=== PATIENT | female | born 1980 | race Caucasian/White ===

== ENCOUNTER 2017-01-03 15:58 | Emergency (ER) | payer BC ==
[~2017-01-03 15:58] MED LIST: BELSOMRA20 MG PO; BELSOMRA5 MG; BENADRYL50 MG/ML IM; BOTOX200 U; BRINTELLIX20 MG PO; CARDIZEM CD120 M1 PO; CLONAZEPAM0.25 MG PO; CYMBALTA20 MG PO; DEPAKOTE500 MG PO; ENJUVIA0.3 MG PO; EXCEDRIN TENSION HA PO; GEODON80 MG PO; IBUPROFEN200 M1 PO; LINZESS145 MCG PO; METOPROLOL SUCC50 M2 PO; MIDRIN 325 MG-11 CAP PO; MIGRANAL NASA4 MG/ML NS; NORFLEX30 MG/ML IM; OXYCODONE HCL10 M1; OXYCODONE HCL10 M1 PO; OXYCODONE5 M1 PO; PERCOCET 325 MG1 TAB PO; PHENERGAN 25 TA25 MG PO; PHENERGAN25 MG/1 ML IJ; PREDNISONE10 M1 PO; PREMARIN 0.60.625 M1 PO; PREMARIN 0.9MG0.9 MG PO; PREMARIN0.9 M1 PO; PROTONIX20 M1 PO; PROTONIX40 MG; TOPAKAX PO; TOPROL XL 25MG25 MG PO; TRAZODONE100 MG PO; ULTRAM50 M1 PO; WELLBUTRIN 75MG75 MG PO; ZOFRAN4 M2 PO; ZOFRAN8 MG; ZOLOFT100 MG PO
[2017-01-03] MEDS ORDERED: ATIVAN1 M1 PO (16:09)
[2017-01-03 16:37] VITALS: BP 132/84
== END 2017-01-03 16:40 | disposition home or self-care (01) ==
LOC: ED 15:58
DX: Z76.5 Malingerer [conscious simulation] (principal); G89.29 Other chronic pain; K83.8 Other specified diseases of biliary tract

== ENCOUNTER 2017-02-02 19:28 | Emergency (ER) | payer BC ==
[~2017-02-02] VITALS: Ht 157.5 cm; Wt 86.4 kg
[~2017-02-02 19:28] MED LIST changes: +ATIVAN1 M1 PO
[2017-02-02 21:19] VITALS: BP 137/82
== END 2017-02-02 21:19 | disposition home or self-care (01) ==
LOC: ED 19:28
DX: R10.11 Right upper quadrant pain (principal); K83.4 Spasm of sphincter of Oddi; G43.909 Migraine, unspecified, not intractable, without status migrainosus; F42.9 Obsessive-compulsive disorder, unspecified
CPT/HCPCS: J0595; J2550

== ENCOUNTER 2017-05-27 15:31 | Emergency (ER) | payer BC ==
[~2017-05-27] VITALS: Ht 157.5 cm; Wt 80.7 kg
[2017-05-27] MEDS ORDERED: OXYCODONE HCL10 M1 PO (16:45)
[2017-05-27] MEDS ORDERED: PROTONIX TR40 M1 PO (16:45)
[2017-05-27] MEDS ORDERED: GEODON80 M1 PO (16:45)
[2017-05-27] MEDS ORDERED: ZOFRAN 8MG8 MG PO (16:45)
[2017-05-27 19:10] VITALS: BP 142/92
== END 2017-05-27 19:34 | disposition home or self-care (01) ==
LOC: ED 15:31
DX: R10.84 Generalized abdominal pain (principal); R11.2 Nausea with vomiting, unspecified; K83.8 Other specified diseases of biliary tract; F32.9 Major depressive disorder, single episode, unspecified; Z90.49 Acquired absence of other specified parts of digestive tract
CPT/HCPCS: J0595; J1170; J2550; J7030

== ENCOUNTER 2017-06-24 18:21 | Emergency (ER) | payer BC ==
[~2017-06-24] VITALS: Ht 157.5 cm; Wt 79.5 kg
[~2017-06-24 18:21] MED LIST changes: +GEODON80 M1 PO; +PROTONIX TR40 M1 PO; +ZOFRAN 8MG8 MG PO
[2017-06-24] MEDS ORDERED: BENADRYL 50M50 MG/ML IJ (18:30)
[2017-06-24] MEDS ORDERED: AMERINET CHO25 MG/ML IJ (18:30)
[2017-06-24 20:37] VITALS: BP 129/90
== END 2017-06-24 20:37 | disposition home or self-care (01) ==
LOC: ED 18:21
DX: R10.11 Right upper quadrant pain (principal); G89.29 Other chronic pain; R11.2 Nausea with vomiting, unspecified; K83.8 Other specified diseases of biliary tract
CPT/HCPCS: J1170; J2405; J7030

== ENCOUNTER 2017-08-20 14:24 | Emergency (ER) | payer BC ==
[~2017-08-20] VITALS: Ht 157.5 cm; Wt 77.3 kg
[~2017-08-20 14:24] MED LIST changes: +AMERINET CHO25 MG/ML IJ; +BENADRYL 50M50 MG/ML IJ
[2017-08-20] MEDS ORDERED: AMERINET CHO25 MG/ML IJ (15:00)
[2017-08-20 15:27] VITALS: BP 122/81
== END 2017-08-20 15:22 | disposition home or self-care (01) ==
LOC: ED 14:24
DX: R11.2 Nausea with vomiting, unspecified (principal); K83.8 Other specified diseases of biliary tract; G89.29 Other chronic pain; F41.9 Anxiety disorder, unspecified; F32.9 Major depressive disorder, single episode, unspecified; K21.9 Gastro-esophageal reflux disease without esophagitis
CPT/HCPCS: J2550

== ENCOUNTER → 2018-01-06 | Outpatient (CLI) | payer BC ==
[~2018-01-06] VITALS: Ht 157.5 cm; Wt 77.3 kg
[2018-01-06 17:49] VITALS: BP 146/91
--- NOTE | 2018-01-06 17:53 | NUR ---
INT INITIATED TO RIGHT AC AFTER 4 UNSUCCESSFUL ATTEMPTS, PATIENT STATES "THEY ALWAYS HAVE TROUBLE", FOR APPROX 55 MINS WHILE INT WAS TRIED PATIENT MADE NO MENTION OF NEED TO VOMIT.
[2018-01-06 19:50] VITALS: BP 144/86
--- NOTE | 2018-01-06 19:52 | NUR ---
IVF INFUSED, PATIENT DID TAKE FEW ICE CHIPS WITHOUT ANY EVIDENCE OF VOMITING, INT DC'D, BANDAID TO SITE, NO BLEEDING NOTED, DISMISSED AMBULATORY TO SELF CAARE
== END ==
LOC: AMSURD 16:39
DX: G43.A1 Cyclical vomiting, in migraine, intractable (principal)
CPT/HCPCS: J2550; J7030

== ENCOUNTER 2018-05-29 12:53 | Emergency (ER) | payer BC ==
[2018-05-29 13:46] LABS: BASO # 0.1 (0.02-0.10); EOS # 0.1 (0.04-0.40); EOS % 0.6 % (1.0-5.0); HEMATOCRIT 43.6 % (37.0-47.0); HEMOGLOBIN 14.6 g/dL (12.5-16.0); LYMPH# 2.7 (1.50-4.00); MEAN CELL VOLUME 87 fl (78-100); MEAN CORPUSCULAR HEMOGLOBIN 29 pg (27-31); MEAN CORPUSCULAR HGB CONC 34 g/dL (33-37); MEAN PLATELET VOLUME 11.6 fl (7.4-10.4); MONO # 0.4 (0.20-0.80); NEU # 6.3 (1.40-6.50); PLATELET COUNT 337 K/mm3 (130-400); RED BLOOD COUNT 4.99 M/mm3 (4.10-5.30); RED CELL DISTRIBUTION WIDTH 15.4 % (11.5-14.5); WHITE BLOOD COUNT 9.6 K/mm3 (4.8-10.8)
[2018-05-29 13:56] LABS: ALBUMIN 4.3 g/dL (3.5-5.0); CALCIUM 9.5 mg/dL (8.4-10.2); POTASSIUM 3.6 mmol/L (3.6-5.0); TOTAL BILIRUBIN 0.5 mg/dL (0.2-1.3); TOTAL PROTEIN 7.4 g/dL (6.3-8.2)
[2018-05-29 14:36] LABS: URINE APPEARANCE HAZY; URINE COLOR YELLOW
[2018-05-29 14:37] LABS: URINE BILIRUBIN NEGATIVE (NEGATIVE); URINE BLOOD NEGATIVE (NEGATIVE); URINE GLUCOSE NEGATIVE (NEGATIVE); URINE KETONE NEGATIVE (NEGATIVE); URINE LEUKOCYTE ESTERASE NEGATIVE (NEGATIVE); URINE NITRATE NEGATIVE (NEGATIVE); URINE PROTEIN(semi-quant) NEGATIVE (NEGATIVE); URINE UROBILINOGEN NORMAL (NORMAL)
[2018-05-29 14:51] VITALS: BP 139/95
== END 2018-05-29 14:51 | disposition home or self-care (01) ==
LOC: ED 12:53
PROVIDERS: Physician Assistant
DX: K83.8 Other specified diseases of biliary tract (principal); G89.29 Other chronic pain; R11.2 Nausea with vomiting, unspecified; Z90.49 Acquired absence of other specified parts of digestive tract; Z79.899 Other long term (current) drug therapy
CPT/HCPCS: J2270; J2550; J7030

== ENCOUNTER 2018-07-04 15:17 | Emergency (ER) | payer BC ==
[~2018-07-04] VITALS: Ht 157.5 cm; Wt 68.2 kg
[2018-07-04 17:10] VITALS: BP 145/98
[2018-07-04] MEDS ORDERED: SERTRALINE HYD100 MG PO (17:17)
[2018-07-04] MEDS ORDERED: GEODON80 M1 PO (17:18)
== END 2018-07-04 17:11 | disposition home or self-care (01) ==
LOC: ED 15:17
DX: K83.09 Other cholangitis (principal); R10.9 Unspecified abdominal pain; R00.0 Tachycardia, unspecified; R11.2 Nausea with vomiting, unspecified; K85.90 Acute pancreatitis without necrosis or infection, unspecified
CPT/HCPCS: J1170; J2550

== ENCOUNTER 2018-07-24 17:24 | Emergency (ER) | payer BC ==
[~2018-07-24 17:24] MED LIST changes: +SERTRALINE HYD100 MG PO
[2018-07-24 18:37] VITALS: BP 155/100
== END 2018-07-24 18:35 | disposition home or self-care (01) ==
LOC: ED 17:24
DX: K83.8 Other specified diseases of biliary tract (principal); G89.29 Other chronic pain; F41.9 Anxiety disorder, unspecified; F31.9 Bipolar disorder, unspecified; Z87.19 Personal history of other diseases of the digestive system; Z90.49 Acquired absence of other specified parts of digestive tract
CPT/HCPCS: J1170; J2765

== ENCOUNTER 2018-08-18 17:07 | Emergency (ER) | payer BC ==
[2018-08-18 18:17] LABS: EOS # 0.1 (0.04-0.40); EOS % 0.8 % (1.0-5.0); HEMATOCRIT 40.4 % (37.0-47.0); HEMOGLOBIN 13.6 g/dL (12.5-16.0); LYMPH# 2.2 (1.50-4.00); MEAN CELL VOLUME 91 fl (78-100); MEAN CORPUSCULAR HEMOGLOBIN 31 pg (27-31); MEAN CORPUSCULAR HGB CONC 34 g/dL (33-37); MEAN PLATELET VOLUME 11.5 fl (7.4-10.4); MONO # 0.4 (0.20-0.80); NEU # 4.7 (1.40-6.50); PLATELET COUNT 333 K/mm3 (130-400); RED BLOOD COUNT 4.43 M/mm3 (4.10-5.30); RED CELL DISTRIBUTION WIDTH 12.8 % (11.5-14.5); WHITE BLOOD COUNT 7.4 K/mm3 (4.8-10.8)
[2018-08-18 18:30] LABS: ALBUMIN 4.3 g/dL (3.5-5.0); CALCIUM 9.8 mg/dL (8.4-10.2); POTASSIUM 3.8 mmol/L (3.6-5.0); TOTAL BILIRUBIN 0.3 mg/dL (0.2-1.3); TOTAL PROTEIN 7.1 g/dL (6.3-8.2)
[2018-08-18 18:32] LABS: LIPASE 214 U/L (23-300)
[2018-08-18] MEDS ORDERED: ZOFRAN ODT4 MG PO (19:16)
[2018-08-18 19:25] LABS: PH-URINE 5.5 (5.0 - 8.0); URINE APPEARANCE HAZY; URINE BILIRUBIN NEGATIVE (NEGATIVE); URINE BLOOD NEGATIVE (NEGATIVE); URINE COLOR YELLOW; URINE GLUCOSE NEGATIVE (NEGATIVE); URINE KETONE NEGATIVE (NEGATIVE); URINE LEUKOCYTE ESTERASE NEGATIVE (NEGATIVE); URINE NITRATE NEGATIVE (NEGATIVE); URINE PROTEIN(semi-quant) TRACE mg/dL (NEGATIVE); URINE UROBILINOGEN NORMAL (NORMAL)
[2018-08-18 19:28] VITALS: BP 131/79
== END 2018-08-18 19:28 | disposition home or self-care (01) ==
LOC: ED 17:07
PROVIDERS: Physician Assistant
DX: G89.29 Other chronic pain (principal); K83.8 Other specified diseases of biliary tract; Z79.899 Other long term (current) drug therapy; F32.9 Major depressive disorder, single episode, unspecified; Z87.19 Personal history of other diseases of the digestive system; Z90.49 Acquired absence of other specified parts of digestive tract; Z88.1 Allergy status to other antibiotic agents; Z88.8 Allergy status to other drugs, medicaments and biological substances
CPT/HCPCS: J1170; J2405; J7030

== ENCOUNTER 2018-08-21 13:21 | Emergency (ER) | payer BC ==
[~2018-08-21] VITALS: Ht 157.5 cm; Wt 70.5 kg
[~2018-08-21 13:21] MED LIST changes: +ZOFRAN ODT4 MG PO
[2018-08-21] MEDS ORDERED: PROTONIX TR40 M1 PO (13:33)
[2018-08-21 14:15] LABS: EOS # 0.1 (0.04-0.40); EOS % 1.3 % (1.0-5.0); HEMOGLOBIN 14.2 g/dL (12.5-16.0); MEAN CELL VOLUME 93 fl (78-100); MEAN CORPUSCULAR HEMOGLOBIN 31 pg (27-31); MEAN CORPUSCULAR HGB CONC 33 g/dL (33-37); MEAN PLATELET VOLUME 11.2 fl (7.4-10.4); MONO # 0.3 (0.20-0.80); NEU # 5.9 (1.40-6.50); PLATELET COUNT 328 K/mm3 (130-400); RED BLOOD COUNT 4.65 M/mm3 (4.10-5.30); WHITE BLOOD COUNT 8.4 K/mm3 (4.8-10.8)
[2018-08-21 14:27] LABS: ALBUMIN 4.5 g/dL (3.5-5.0); CALCIUM 9.4 mg/dL (8.4-10.2); TOTAL BILIRUBIN 0.4 mg/dL (0.2-1.3); TOTAL PROTEIN 7.4 g/dL (6.3-8.2)
[2018-08-21 14:30] LABS: URINE APPEARANCE CLEAR; URINE BILIRUBIN NEGATIVE (NEGATIVE); URINE BLOOD NEGATIVE (NEGATIVE); URINE COLOR YELLOW; URINE GLUCOSE NEGATIVE (NEGATIVE); URINE KETONE NEGATIVE (NEGATIVE); URINE LEUKOCYTE ESTERASE NEGATIVE (NEGATIVE); URINE NITRATE NEGATIVE (NEGATIVE); URINE PROTEIN(semi-quant) TRACE mg/dL (NEGATIVE); URINE UROBILINOGEN NORMAL (NORMAL)
[2018-08-21 14:31] LABS: URINE WBC 0-1 /hpf (0-3)
[2018-08-21 15:35] VITALS: BP 132/93
== END 2018-08-21 15:40 | disposition home or self-care (01) ==
LOC: ED 13:21
PROVIDERS: Nurse Practitioner Primary Care
DX: K83.8 Other specified diseases of biliary tract (principal); I10 Essential (primary) hypertension; F31.9 Bipolar disorder, unspecified; Z79.899 Other long term (current) drug therapy; Z88.5 Allergy status to narcotic agent; Z88.8 Allergy status to other drugs, medicaments and biological substances
CPT/HCPCS: J2270; J2550; J7030

== ENCOUNTER 2018-08-24 16:54 | Emergency (ER) | payer BC ==
[2018-08-24 16:59] VITALS: BP 150/95
== END 2018-08-24 19:46 | disposition home or self-care (01) ==
LOC: ED 16:54
DX: K83.8 Other specified diseases of biliary tract (principal); Z87.19 Personal history of other diseases of the digestive system; F31.9 Bipolar disorder, unspecified; Z90.49 Acquired absence of other specified parts of digestive tract; Z79.899 Other long term (current) drug therapy
CPT/HCPCS: J0595; J2405

== ENCOUNTER 2018-08-31 15:27 | Emergency (ER) | payer BC ==
[2018-08-31 17:57] VITALS: BP 145/98
[2018-09-01] MEDS ORDERED: FENTANYL1 EAC3 TD (21:45)
== END 2018-08-31 17:59 | disposition home or self-care (01) ==
LOC: ED 15:27
DX: R10.11 Right upper quadrant pain (principal); R11.10 Vomiting, unspecified; R51 Headache; K83.4 Spasm of sphincter of Oddi; F31.9 Bipolar disorder, unspecified; F42.9 Obsessive-compulsive disorder, unspecified; G43.909 Migraine, unspecified, not intractable, without status migrainosus; Z90.49 Acquired absence of other specified parts of digestive tract; Z79.899 Other long term (current) drug therapy; Z87.19 Personal history of other diseases of the digestive system
CPT/HCPCS: J0595; J2765

== ENCOUNTER 2018-09-01 19:35 | Emergency (ER) | payer BC ==
[2018-08-31 17:57] VITALS: BP 145/98
[~2018-09-01] VITALS: Ht 157.5 cm; Wt 68.2 kg
[2018-09-01 21:07] LABS: HEMATOCRIT 45.3 % (37.0-47.0); HEMOGLOBIN 15.2 g/dL (12.5-16.0); MEAN CELL VOLUME 92 fl (78-100); MEAN CORPUSCULAR HEMOGLOBIN 31 pg (27-31); MEAN CORPUSCULAR HGB CONC 34 g/dL (33-37); MEAN PLATELET VOLUME 11.1 fl (7.4-10.4); PLATELET COUNT 329 K/mm3 (130-400); RED BLOOD COUNT 4.94 M/mm3 (4.10-5.30); RED CELL DISTRIBUTION WIDTH 13.3 % (11.5-14.5); WHITE BLOOD COUNT 15.1 K/mm3 (4.8-10.8)
[2018-09-01 21:21] LABS: CALCIUM 9.3 mg/dL (8.4-10.2); POTASSIUM 3.4 mmol/L (3.6-5.0); TOTAL BILIRUBIN 0.7 mg/dL (0.2-1.3); TOTAL PROTEIN 8.2 g/dL (6.3-8.2)
[2018-09-01 21:23] LABS: URINE APPEARANCE CLOUDY; URINE BILIRUBIN NEGATIVE (NEGATIVE); URINE BLOOD NEGATIVE (NEGATIVE); URINE COLOR YELLOW; URINE GLUCOSE NEGATIVE (NEGATIVE); URINE KETONE NEGATIVE (NEGATIVE); URINE LEUKOCYTE ESTERASE NEGATIVE (NEGATIVE); URINE NITRATE NEGATIVE (NEGATIVE); URINE PROTEIN(semi-quant) NEGATIVE (NEGATIVE); URINE UROBILINOGEN NORMAL (NORMAL)
[2018-09-01 21:23] LABS: BAND 1 % (0-10); LYMPHOCYTE 5 % (20-51); MONOCYTE 4 % (3-10); NEUTROPHILS 90 % (42-75)
[2018-09-01 21:24] LABS: URINE MUCUS PRESENT (NOT PRESENT)
[2018-09-01] MEDS ORDERED: FENTANYL1 EAC3 TD (21:45)
== END 2018-09-01 22:24 | disposition home or self-care (01) ==
LOC: ED 19:35
PROVIDERS: Nurse Practitioner
DX: K83.4 Spasm of sphincter of Oddi (principal); G89.29 Other chronic pain; G43.909 Migraine, unspecified, not intractable, without status migrainosus; F31.9 Bipolar disorder, unspecified; F42.9 Obsessive-compulsive disorder, unspecified; Z79.899 Other long term (current) drug therapy; Z87.891 Personal history of nicotine dependence; Z79.891 Long term (current) use of opiate analgesic
CPT/HCPCS: J0595; J2550

== ENCOUNTER 2018-09-12 22:25 | Emergency (ER) | payer BC ==
[2018-09-01 19:40] VITALS: BP 137/85
[~2018-09-12] VITALS: Ht 167.6 cm; Wt 81.8 kg
[~2018-09-12 22:25] MED LIST changes: +FENTANYL1 EAC3 TD
== END 2018-09-13 01:01 | disposition home or self-care (01) ==
LOC: ED 22:25
DX: R10.13 Epigastric pain (principal); R10.11 Right upper quadrant pain; R11.2 Nausea with vomiting, unspecified; G43.909 Migraine, unspecified, not intractable, without status migrainosus; K83.4 Spasm of sphincter of Oddi; Z90.49 Acquired absence of other specified parts of digestive tract; Z90.710 Acquired absence of both cervix and uterus; Z79.899 Other long term (current) drug therapy
CPT/HCPCS: J0595; J2765

== ENCOUNTER 2018-09-17 17:47 | Emergency (ER) | payer BC ==
[~2018-09-17] VITALS: Ht 157.5 cm; Wt 68.2 kg
[2018-09-17 20:13] LABS: BASO # 0.1 (0.02-0.10); EOS # 0.1 (0.04-0.40); EOS % 1.1 % (1.0-5.0); HEMATOCRIT 44.3 % (37.0-47.0); HEMOGLOBIN 14.4 g/dL (12.5-16.0); LYMPH# 2.1 (1.50-4.00); MEAN CELL VOLUME 93 fl (78-100); MEAN CORPUSCULAR HEMOGLOBIN 30 pg (27-31); MEAN CORPUSCULAR HGB CONC 33 g/dL (33-37); MEAN PLATELET VOLUME 10.8 fl (7.4-10.4); MONO # 0.5 (0.20-0.80); NEU # 5.3 (1.40-6.50); PLATELET COUNT 375 K/mm3 (130-400); RED BLOOD COUNT 4.78 M/mm3 (4.10-5.30); RED CELL DISTRIBUTION WIDTH 12.9 % (11.5-14.5); WHITE BLOOD COUNT 8.1 K/mm3 (4.8-10.8)
[2018-09-17 20:45] LABS: ALBUMIN 4.2 g/dL (3.5-5.0); CALCIUM 9.9 mg/dL (8.4-10.2); POTASSIUM 3.9 mmol/L (3.6-5.0); TOTAL BILIRUBIN 0.3 mg/dL (0.2-1.3); TOTAL PROTEIN 7.2 g/dL (6.3-8.2)
[2018-09-17 21:59] VITALS: BP 148/75
== END 2018-09-17 21:59 | disposition home or self-care (01) ==
LOC: ED 17:47
PROVIDERS: Physician Assistant
DX: K83.8 Other specified diseases of biliary tract (principal); E86.0 Dehydration; R11.2 Nausea with vomiting, unspecified; Z90.49 Acquired absence of other specified parts of digestive tract; Z88.5 Allergy status to narcotic agent; Z88.8 Allergy status to other drugs, medicaments and biological substances
CPT/HCPCS: J2405; J2550; J7030

== ENCOUNTER 2018-10-04 16:27 | Emergency (ER) | payer BC ==
[~2018-10-04] VITALS: Ht 157.5 cm; Wt 68.2 kg
[2018-10-04 19:20] VITALS: BP 136/87
== END 2018-10-04 19:20 | disposition home or self-care (01) ==
LOC: ED 16:27
DX: R11.2 Nausea with vomiting, unspecified (principal); R10.9 Unspecified abdominal pain; F31.9 Bipolar disorder, unspecified; G43.909 Migraine, unspecified, not intractable, without status migrainosus; Z90.49 Acquired absence of other specified parts of digestive tract; Z90.710 Acquired absence of both cervix and uterus; Z87.19 Personal history of other diseases of the digestive system
CPT/HCPCS: J0595; J1630; J2060; J2550

== ENCOUNTER 2018-10-07 15:55 | Emergency (ER) | payer BC ==
[~2018-10-07] VITALS: Ht 157.5 cm; Wt 68.2 kg
[2018-10-07 18:00] VITALS: BP 134/76
== END 2018-10-07 20:22 | disposition home or self-care (01) ==
LOC: ED 15:55
DX: K82.8 Other specified diseases of gallbladder (principal); Z98.890 Other specified postprocedural states
CPT/HCPCS: J1170; J2550

== ENCOUNTER 2019-04-03 16:46 | Emergency (ER) | payer BC ==
[~2019-04-03] VITALS: Ht 157.5 cm; Wt 77.3 kg
[2019-04-03] MEDS ORDERED: PHENADOZ25 MG REC (17:47)
[2019-04-03 20:54] VITALS: BP 143/70
== END 2019-04-03 20:58 | disposition home or self-care (01) ==
LOC: ED 16:46
DX: R10.13 Epigastric pain (principal); F31.9 Bipolar disorder, unspecified; Z87.19 Personal history of other diseases of the digestive system; Z90.49 Acquired absence of other specified parts of digestive tract; Z98.890 Other specified postprocedural states
CPT/HCPCS: J2550

== ENCOUNTER 2024-09-09 09:29 | Emergency (ER) | payer MEDICARE ==
[~2024-09-09] VITALS: Ht 157.5 cm; Wt 77.2 kg
[~2024-09-09 09:29] MED LIST changes: +PHENADOZ25 MG REC
[2024-09-09] MEDS ORDERED: QUETIAPINE FUM100 M1 PO (09:41)
[2024-09-09] MEDS ORDERED: PANTOPRAZOLE SO40 MG PO (09:42)
[2024-09-09] MEDS ORDERED: ONDANSETRON HYDR8 MG PO (09:42)
[2024-09-09] MEDS ORDERED: UBRELVY100 MG PO (09:42)
[2024-09-09] MEDS ORDERED: FLUOXETINE40 MG PO (09:42)
[2024-09-09] MEDS ORDERED: CLONIDINE HYDR0.1 MG PO (09:42)
[2024-09-09] MEDS ORDERED: GABAPENTIN100 MG PO (09:43)
[2024-09-09 10:06] LABS: URINE APPEARANCE CLEAR (CLEAR); URINE BILIRUBIN NEGATIVE (NEGATIVE); URINE BLOOD NEGATIVE (NEGATIVE); URINE COLOR YELLOW (YELLOW); URINE GLUCOSE NEGATIVE (NEGATIVE); URINE KETONE NEGATIVE (NEGATIVE); URINE LEUKOCYTE ESTERASE NEGATIVE (NEGATIVE); URINE MUCUS PRESENT (NOT PRESENT); URINE NITRATE NEGATIVE (NEGATIVE); URINE PROTEIN(semi-quant) NEGATIVE (NEGATIVE); URINE WBC 0-1 /hpf (0-3)
[2024-09-09] MEDS ORDERED: Nitrofurantoin (Mono/Macro) 100 MG CAPSULE PO ONE (10:30)
[2024-09-09] MEDS ORDERED: Home Cyclobenzaprine 10 MG #2 TABS/PACK PO ONE (10:30)
[2024-09-09] MEDS ORDERED: MACROBID 100 M100 MG PO (10:31)
[2024-09-09 10:41] VITALS: BP 130/84
[2024-09-09] MEDS ORDERED: Nitrofurantoin (Mono/Macro) 100 MG CAPSULE PO SCH (21:00)
== END 2024-09-09 10:45 | disposition home or self-care (01) ==
LOC: ED 09:29
PROVIDERS: Nurse Practitioner Family
DX: M54.50 Low back pain, unspecified (principal); R30.0 Dysuria; Z88.1 Allergy status to other antibiotic agents